=== PATIENT | female | born 1960 | race Caucasian/White ===

== ENCOUNTER 2021-03-21 14:57 | Outpatient (CLI) | payer MEDICARE, MEDICAID | END 2021-03-21 23:59 | disposition home or self-care (01) | LOC: CARD DIAG 14:57 | PROVIDERS: ATTEND Internal Medicine Hematology & Oncology | DX: Z01.818 Encounter for other preprocedural examination (principal); C50.512 Malignant neoplasm of lower-outer quadrant of left female breast; I08.0 Rheumatic disorders of both mitral and aortic valves | CPT/HCPCS: 93306 ==

== ENCOUNTER 2021-06-05 12:04 | Outpatient (CLI) | payer MEDICARE, MEDICAID | END 2021-06-05 23:59 | disposition home or self-care (01) | LOC: CARD DIAG 12:04 | PROVIDERS: ATTEND Internal Medicine Hematology & Oncology | DX: C50.512 Malignant neoplasm of lower-outer quadrant of left female breast (principal) | CPT/HCPCS: 93308 ==

== ENCOUNTER 2021-10-07 10:39 | Outpatient (CLI) | payer MEDICARE, MEDICAID | END 2021-10-07 23:59 | disposition home or self-care (01) | LOC: CARD DIAG 10:39 | PROVIDERS: ATTEND Internal Medicine Hematology & Oncology | DX: C50.512 Malignant neoplasm of lower-outer quadrant of left female breast (principal); I36.1 Nonrheumatic tricuspid (valve) insufficiency | CPT/HCPCS: 93306 ==

== ENCOUNTER 2021-12-27 11:51 | Outpatient (CLI) | payer MEDICARE, MEDICAID | END 2021-12-27 23:59 | disposition home or self-care (01) | LOC: CARD DIAG 11:51 | PROVIDERS: ATTEND Internal Medicine Hematology & Oncology | DX: C50.512 Malignant neoplasm of lower-outer quadrant of left female breast (principal); I34.0 Nonrheumatic mitral (valve) insufficiency | CPT/HCPCS: 93306 ==

== ENCOUNTER 2024-03-24 05:43 | Day surgery (SDC) | payer BC, MEDICAID ==
[2024-03-17 10:34] LABS: BILIRUBIN,URINE NEGATIVE (Neg); CLARITY,URINE CLEAR (Clear); COLOR,URINE YELLOW (Yellow); GLUCOSE, URINE NEGATIVE (Neg); KETONES,URINE NEGATIVE (Neg); LEUKOCYTE ESTERASE ,URINE NEGATIVE (Neg); NITRITES, URINE NEGATIVE (Neg); OCCULT BLOOD,URINE TRACE-INTACT (Neg); PROTEIN,URINE NEGATIVE (Neg); UROBILINOGEN,URINE 0.2 E.U/dL (0.2-1.0)
[2024-03-17 10:35] LABS: BASOPHILS % (AUTO) 0.7 % (0-1); EOSINOPHILS % (AUTO) 0.5 % (0-6); LYMPHOCYTES # (AUTO) 0.8 X10'3 (1.1-4.8); LYMPHOCYTES % (AUTO) 24.6 % (21-51); MEAN CORPUSCULAR HEMOGLOBIN 39.4 PG (27.0-31.0); MEAN CORPUSCULAR VOLUME 115.9 FL (78-98); MEAN PLATELET VOLUME 7.7 FL (7.4-10.4); MONOCYTES # (AUTO) 0.4 X10'3 (0-0.9); MONOCYTES % (AUTO) 11.8 % (2-12); NEUTROPHILS # (AUTO) 1.9 X10'3 (1.8-7.7); NEUTROPHILS % (AUTO) 62.4 % (42-75); PRE OP HEMATOCRIT 39.8 % (35.0-45.0); PRE OP HEMOGLOBIN 13.5 g/dL (12.0-16.0); PRE OP PLATELET COUNT 173 X10'3 (140-440); PRE OP WHITE BLOOD COUNT 3.1 10'3 (4.8-10.8); RED BLOOD COUNT 3.43 X10'6 (4.20-5.60); RED CELL DISTRIBUTION WIDTH 13.8 % (11.5-14.5); UA COLLECTION TYPE CLN CATCH MIDSTREAM
[2024-03-17 10:44] LABS: ALBUMIN 3.6 G/DL (3.4-5.0); ALBUMIN/GLOBULIN RATIO 0.9 (1.1-1.5); ALKALINE PHOSPHATASE 75 IU/L (46-116); BLOOD UREA NITROGEN 19 MG/DL (7-18); BUN/CREATININE RATIO 15.2 (10.0-20.0); CHLORIDE 106 MMOL/L (99-107); CREATININE 1.25 MG/DL (0.40-0.90); PRE OP ALT 16 U/L (30-65); PRE OP ANION GAP 9 (8-16); PRE OP AST 12 U/L (10-37); PRE OP BILIRUB, TOTAL 0.3 MG/DL (0.0-1.0); PRE OP GLUCOSE 88 MG/DL (70-104); PRE OP POTASSIUM 3.8 MMOL/L (3.4-5.1); PRE OP SODIUM 140 MMOL/L (135-145); TOTAL CARBON DIOXIDE 25.2 MMOL/L (24-32); TOTAL PROTEIN 7.5 G/DL (6.4-8.2); eGFR 43 ML/MIN
[2024-03-17 10:48] LABS: PRE OP INR 0.9 INR
[2024-03-17 11:30] LABS: SQUAMOUS EPITHELIAL CELL,UR FEW /LPF (FEW)
[2024-03-17 11:31] LABS: BACTERIA,URINE FEW /HPF (Neg); RBC,URINE 0-2 /HPF (0-2); WBC,URINE 0-4 /HPF (0-4)
[~2024-03-24] VITALS: Ht 160 cm; Wt 62.5 kg
[2024-03-24] VITALS (12 sets, daily range): BP systolic 105–160; BP diastolic 47–82; PULSE 67–101; RESP 12–17; TEMP 98.7; O2SAT 94–100
[2024-03-24] MEDS: cefazolin 2gm/D5W 100mL 100 ML IV ONE (05:30)
[~2024-03-24 05:43] MED LIST: ANAS1TAB10 PO; CHOL20002 PO; FAMO20TA8 PO; PRE5T PO; RIBO600T PO
[2024-03-24] MEDS: famotidine 20mg tablet PO ONE (06:49)
[2024-03-24] MEDS: ringers solution, lacted 1,000 ML IV SCH (06:50)
[2024-03-24] MEDS: albuterol 2.5 MG/3 ML nebule NEB ONE (07:03)
[2024-03-24] MEDS ORDERED: bacitracin 15gm ointment TP ONE (07:13)
[2024-03-24] MEDS ORDERED: BUPIVAcaine/PF 2.5mg/ml (0.25%) 10ml vial ONE (07:13)
[2024-03-24] MEDS ORDERED: meperidine/PF 25mg/ml syringe IV PRN ×2 (08:10)
[2024-03-24] MEDS ORDERED: morphine 4 MG/ML inj SYRINge IV PRN (08:10)
[2024-03-24] MEDS ORDERED: labetalol 20mg/4ml (5mg/ml) syringe IV PRN (08:10)
[2024-03-24] MEDS ORDERED: ringers solution, lacted 1,000 ML IV SCH (08:10)
[2024-03-24] MEDS ORDERED: enalaprilat dihydrate 2.5mg/2ml vial IV PRN (08:10)
[2024-03-24] MEDS ORDERED: morphine 2 MG/ML inj. syringe IV PRN (08:10)
[2024-03-24] MEDS ORDERED: sevoflurane 250ml liquid IH ONE (08:44)
[2024-03-24] MEDS ORDERED: fentaNYL/PF 50MCG/1 ML 2ML syringe ONE (08:45)
[2024-03-24] MEDS ORDERED: midazolam 1 mg/ML 2ml injection ONE (08:45)
[2024-03-24] MEDS ORDERED: propofol inj 20 ML IV ONE (08:46)
[2024-03-24] MEDS ORDERED: ondansetron/PF 4mg/2ml inj ONE (08:57)
[2024-03-24] MEDS: BUPIVAcaine/PF 2.5 mg/ml (0.25%) 30ml vial IJ ONE (09:47)
[2024-03-24] MEDS ORDERED: meperidine/PF 25mg/ml syringe ONE (10:49)
[2024-03-24] MEDS: meperidine/PF 25mg/ml syringe IV PRN (11:50)
[2024-03-24] MEDS: ondansetron/PF 4mg/2ml inj IV PRN (12:23)
[2024-03-24] MEDS: proCHLORperazine 10 MG/2 ml inj IV PRN (12:34)
== END 2024-03-24 12:53 | disposition home or self-care (01) ==
LOC: PAS 05:43
PROVIDERS: ATTEND Podiatrist Foot & Ankle Surgery
DX: M20.41 Other hammer toe(s) (acquired), right foot (principal); M20.11 Hallux valgus (acquired), right foot; J44.9 Chronic obstructive pulmonary disease, unspecified; E89.6 Postprocedural adrenocortical (-medullary) hypofunction; I25.2 Old myocardial infarction; Z79.1 Long term (current) use of non-steroidal anti-inflammatories (NSAID); Z79.891 Long term (current) use of opiate analgesic; Z79.899 Other long term (current) drug therapy; Z90.12 Acquired absence of left breast and nipple; Z98.51 Tubal ligation status; Z98.890 Other specified postprocedural states
CPT/HCPCS: 28112; 28285; 28299; 71046; 73620; 80053; 81001; 82948; 85025; 85610; 85730; 94640; 94760; A6222; C1713; J0690; J0780; J1100; J2175; J2250; J2405; J2704; J3010; J3490; J7030; J7120; Z7506; Z7508; Z7512; 76000; A4618; A6449; A7000

== ENCOUNTER 2025-06-21 08:18 | Day surgery (SDC) | payer BC, MEDICAID ==
[~2025-06-21] VITALS: Ht 157.5 cm; Wt 48.0 kg
[~2025-06-21 08:18] MED LIST changes: +FENO43CA8 PO; +FISH OIL PO; +LIDOcaine 2% Viscous 15ml cup MM ONE; +normal saline 1000ml 1,000 ML IV SCH; +ringers solution, lacted 1,000 ML IV SCH; +simethicone 40mg/0.6ml oral drops 15ml PO ONE
[2025-06-21 08:35] VITALS: BP 140/64; PULSE 77; RESP 16; TEMP 97.2; O2SAT 98
[2025-06-21] MEDS ORDERED: propofol inj 20 ML IV ONE (09:29)
[2025-06-21 10:14] VITALS: BP 134/67; PULSE 63; RESP 14; O2SAT 99
[2025-06-21 10:30] VITALS: BP 157/87; PULSE 58; RESP 16; O2SAT 99
[2025-06-21 10:40] VITALS: BP 158/79; PULSE 57; RESP 14; O2SAT 100
[2025-06-21 10:50] VITALS: BP 155/79; PULSE 59; RESP 16; O2SAT 100
== END 2025-06-21 10:54 | disposition home or self-care (01) ==
LOC: GI LAB 08:18
PROVIDERS: ATTEND Internal Medicine Gastroenterology
DX: Z12.11 Encounter for screening for malignant neoplasm of colon (principal); K62.89 Other specified diseases of anus and rectum; R13.10 Dysphagia, unspecified; K64.8 Other hemorrhoids; I25.2 Old myocardial infarction; K25.9 Gastric ulcer, unspecified as acute or chronic, without hemorrhage or perforation; K31.89 Other diseases of stomach and duodenum; K44.9 Diaphragmatic hernia without obstruction or gangrene; Z79.899 Other long term (current) drug therapy; Z98.890 Other specified postprocedural states; Z80.0 Family history of malignant neoplasm of digestive organs
CPT/HCPCS: 43239; 45378; 82948; 88305; 88342; J2704; J7030; J7120; Z7512; A4620